=== PATIENT | female | born 1995 | race Caucasian/White ===

== ENCOUNTER 2016-07-10 22:17 | Emergency (ER) | payer OTHER ==
[~2016-07-10 22:17] MED LIST: BIRTH CONTROL PILL PO; NAPROSYN500 MG PO
[2016-07-10] MEDS ORDERED: IBUPROFEN800 M1 PO (22:58)
== END 2016-07-10 23:16 ==
LOC: EDMED 22:17
DX: S93.402A Sprain of unspecified ligament of left ankle, initial encounter (principal); F17.200 Nicotine dependence, unspecified, uncomplicated; X50.1XXA Overexertion from prolonged static or awkward postures, initial encounter; Y92.019 Unspecified place in single-family (private) house as the place of occurrence of the external cause